=== PATIENT | male | born 1970 | race Caucasian/White ===

== ENCOUNTER 2017-01-15 08:04 | Day surgery (SDC) | payer BC ==
[2017-01-10 11:24] VITALS: BMI 25.8
[~2017-01-15 08:04] MED LIST: LACTATED RINGERS 1,000 ML IV SCH
[2017-01-15 08:36] VITALS: RESP 18; TEMP 97.3
[2017-01-15] MEDS ORDERED: LIDOCAINE 1% 20 ML VIAL (10MG/ML) FOR IV START INTRADERMA ONE (08:44)
[2017-01-15] MEDS ORDERED: PROPOFOL 10 MG/ML 20 ML VIAL IV ONE (08:56)
[2017-01-15] MEDS ORDERED: MIDAZOLAM 2 MG/2 ML VIAL ONE (08:56)
[2017-01-15] MEDS ORDERED: LIDOCAINE 1% INJ 10MG/ML (20 ML MDV) ONE (08:56)
[2017-01-15 09:39] VITALS: BP 154/99; PULSE 70
--- NOTE | 2017-01-15 10:05 | P.PCN ---
Date of Procedure: 01/15/17 Preoperative Diagnosis: Postoperative Diagnosis: Procedure(s) Performed: Procedure: Total colonoscopy. Preoperative diagnosis: Screening for neoplasia, patient has family history of colon cancer in his father. Postoperative diagnosis: Exam within normal limits. Preparation: HalfLytely prep. Sedation: Was provided by anesthesia. Brief clinical history: The patient is a 56-year-old male who is referred for this evaluation for screening for neoplasia. There is family history of colon cancer in his father who developed cancer age 51. The patient has no abdominal complaints, bleeding or anemia. This would be his first exam. Procedure: With the patient on his left lateral decubitus position and after informed consent and adequate sedation, the perianal area was inspected and it did not show any fissures or fistulas. There were no masses felt on digital rectal examination. The Olympus CFQ 160L video colonoscope was then inserted in the rectum in the usual fashion and advanced to the cecum. The preparation was good. The mucosa appeared healthy. No polyps or tumors were seen or any obvious diverticular disease or other pathology. I retroflexed endoscope in the rectum before the endoscope was withdrawn. The patient tolerated the procedure well. Plan: The patient was reassured. In light of his family history, I recommended repeat exam in 5 years. He will follow up with you as planned. Implants: Indications for Procedure: Operative Findings: Description of Procedure:
== END 2017-01-15 10:00 | disposition home or self-care (01) ==
LOC: ORWHC2ENDO 08:04
DX: Z12.11 Encounter for screening for malignant neoplasm of colon (principal); Z80.0 Family history of malignant neoplasm of digestive organs; I25.10 Atherosclerotic heart disease of native coronary artery without angina pectoris; I10 Essential (primary) hypertension; E78.5 Hyperlipidemia, unspecified; I25.2 Old myocardial infarction; K21.9 Gastro-esophageal reflux disease without esophagitis; Z95.5 Presence of coronary angioplasty implant and graft; Z79.02 Long term (current) use of antithrombotics/antiplatelets; Z79.82 Long term (current) use of aspirin; Z79.899 Other long term (current) drug therapy
CPT/HCPCS: J2250; J2001; J2704; G0105